=== PATIENT | female | born 1990 | race Caucasian/White ===

== ENCOUNTER → 2016-11-05 | Outpatient (CLI) | payer BC ==
[~2016-11-05] MED LIST: PRENTAB26 PO
[2016-11-05 14:06] LABS: GTGD 50 Grams
[2016-11-06 13:28] LABS: AFP CONCENTRATION 51.4 NG/ML; AFP MULTIPLE OF MEDIAN 1.44; AFPTS GESTATIONAL AGE 16.1 WEEKS; AFPTS INSULIN DEP DIABETIC? NO; AFPTS MATERNAL WT 134 LBS; ALPHA-FETOPROTEIN RACE CAUCASIAN=W; EDD DETERMINED BY ULTRASOUND; ESTRIOL MULTIPLE OF MEDIAN 1.14; HISTORY OF NTD NO; INHIBIN A 221 PG/ML; INHIBIN A MOM 1.22; REPEAT SAMPLE? NO; hCG MULTIPLE OF MEDIAN 2.74
== END | disposition home or self-care (01) ==
LOC: C.LAB1850 09:35
PROVIDERS: ATTEND Obstetrics & Gynecology
DX: O09.292 Supervision of pregnancy with other poor reproductive or obstetric history, second trimester (principal); Z3A.00 Weeks of gestation of pregnancy not specified

== ENCOUNTER → 2016-12-06 | Outpatient (CLI) | payer BC | END | disposition home or self-care (01) | LOC: C.LABSPEC 14:33 | PROVIDERS: ATTEND Obstetrics & Gynecology | DX: O09.293 Supervision of pregnancy with other poor reproductive or obstetric history, third trimester (principal) ==

== ENCOUNTER 2017-01-21 23:23 | Outpatient (CLI) | payer BC ==
[~2017-01-21] VITALS: Ht 154.9 cm; Wt 66.0 kg
[2017-01-22 00:37] VITALS: Ht 154.9 cm; Wt 66.0 kg
[2017-01-22] MEDS ORDERED: PRENTAB26 PO (00:38)
--- NOTE | 2017-02-04 10:12 | EDITING REQUIRED CODING QUERY ---
DIAGNOSIS NEEDED To promote full compliance with coding requirements relating to patient care, physician participation is requested in all cases of furniture arranger uncertainty. Please assist us with the question(s) below: Coding Question: The patient received care in labor and delivery on 01/21/17 as noted within the record. Please document the diagnosis that is being addressed by the medication/treatment. Provider Response: DIAGNOSIS: Abdominal pain in Thank you for your assistance, Isabel Resendiz - Terrazzo Roller
== END 2017-01-22 00:35 | disposition home or self-care (01) ==
LOC: C.LD 23:23 → C.OPB 23:23
PROVIDERS: ATTEND Obstetrics & Gynecology
DX: O99.89 Other specified diseases and conditions complicating pregnancy, childbirth and the puerperium (principal); R10.9 Unspecified abdominal pain; Z3A.27 27 weeks gestation of pregnancy

== ENCOUNTER 2017-01-22 00:40 | Emergency (ER) | payer BC ==
[~2017-01-22] VITALS: Ht 157.5 cm; Wt 67.2 kg
[2017-01-22 00:47] VITALS: TEMP 36.8; Ht 157.5 cm; Wt 67.2 kg
[2017-01-22] MEDS ORDERED: ACETAMINOPHEN 500 MG TAB PO STA (01:33)
[2017-01-22 01:49] LABS: MEAN CELL VOLUME 93.2 fL (80-100); MEAN CORPUSCULAR HEMOGLOBIN 32.6 pg (25-34); MEAN PLATELET VOLUME 10.5 fL (7.4-10.4); PLATELET COUNT 222 K/uL (130-400); RED BLOOD COUNT 3.65 M/uL (4.2-5.4); WHITE BLOOD COUNT 10.43 K/uL (4.8-10.8)
[2017-01-22 01:52] LABS: URINE APPEARANCE CLEAR (CLEAR); URINE BILIRUBIN NEG (NEG); URINE COLOR YELLOW; URINE EPITHELIAL CELL AUTO 20-30 /lpf (0-5); URINE NITRITE NEG (NEG); URINE PH 7.5 (4.5-7.5); URINE SPECIFIC GRAVITY 1.005 (1.000-1.030); UROBILINOGEN NEG (NEG); ZZUR CULT IF INDIC CLEAN CATCH NO
[2017-01-22 01:55] LABS: MANUAL MICROSCOPIC REQUIRED? NO; REVIEW REQ? NO
[2017-01-22 01:56] LABS: ALT/SGPT 14 U/L (12-78); AST/SGOT 8 U/L (15-37); BLOOD UREA NITROGEN 7 mg/dl (7-18); BUN/CREATININE RATIO 14.3 (10-20); CALCIUM 8.5 mg/dl (8.5-10.1); CARBON DIOXIDE 26 mmol/L (21-32); CHLORIDE 107 mmol/L (98-107); CREATININE 0.52 mg/dl (0.60-1.20); GLUCOSE 90 mg/dl (70-99); POTASSIUM 3.7 mmol/L (3.5-5.1); SODIUM 141 mmol/L (136-145)
[2017-01-22 01:59] LABS: ALB/GLOB RATIO 0.7 (0.9-2); ALKALINE PHOSPHATASE 100 U/L (45-117)
[2017-01-22 02:08] LABS: BASO % 0.1 %; BASO ABS # 0.01 K/uL (0-0.2); COMPLETE YES; EOS % 1.1 %; IG% 0.4 %; LYMPH % 20.6 %; LYMPH ABS # 2.15 K/uL (1.2-3.4); MONO % 5.8 %
[2017-01-22 03:29] VITALS: BP 95/55; PULSE 87; O2SAT 97
--- NOTE | 2017-01-22 06:30 | EMERGENCY ROOM VISIT NOTE ---
History First contact with patient: 01:26 Chief Complaint: ABDOMINAL PAIN Stated Complaint: LOWER LT ABD PAIN AND TENDERNESS Nursing Triage Summary: pt c/o left sided abd pain and tenderness. some nausea. denies v/d. 27 wks preg. denies any spotting or bleeding. evaled on OB, no problems History of Present Illness The patient is a 26 year old female who presents to the Emergency Room with complaints of left sided lower abdominal pain for the past one and half days. The patient is 27 weeks with her second child. She has already been seen on the OB floor where a nonstress test was normal. The patient was then referred down to the ER for further evaluation. The patient has not had fever, chills, chest pain, chest tightness, or shortness of breath. No vaginal drainage, discharge, or bleeding. No dysuria or flank pain. The baby has been moving is normal. The patient states her discomfort does worsen with certain positions and range of motion. Standing upright does exacerbate her discomfort. The patient has not been taking anything [id number] for her discomfort which she currently rates a 5/10. Review of Systems More than 10 systems were reviewed and otherwise negative with the exception of history of present illness. Past Medical/Surgical History No chronic medical disease Family History No pertinent family history Social History Smoking Status: Never Smoker Housing Status: lives with family Current/Historical Medications Scheduled Multivit/Min/Iron/Fol Ac/Pren ( Vitamin), 1 TAB PO DAILY Allergies Uncoded Allergies: GREEN TABASCO SAUCE (Allergy, Intermediate, HIVES, 07/09/15) Physical Exam Vital Signs Date Time Temp Pulse Resp B/P Pulse Ox O2 Delivery O2 Flow Rate FiO2 01/22/17 03:29 87 20 95/55 97 01/22/17 02:38 75 18 100/57 97 Room Air 01/22/17 00:47 36.8 85 20 116/74 97 Room Air Pain Rating (0-10): 3.0 Physical Exam VITALS: Vitals are noted on the nurse's note and reviewed by myself. Vital signs stable. GENERAL: Well-developed, well-nourished, white female, who is in no acute distress and resting comfortably. Patient is cooperative with the examination. HEAD: Normocephalic atraumatic. HEART: Regular rate and rhythm without murmurs gallops or rubs. LUNGS: Clear to auscultation bilaterally without wheezes, rales or rhonchi. No retractions or accessory muscle use. ABDOMEN: Positive normal bowel sounds x 4. Soft without significant tenderness on palpation. Abdomen is consistent with 27 week . No CVA tenderness. MUSCULOSKELETAL: No muscle atrophy, erythema, or edema noted. Full range of motion without joint tenderness in all extremities. Medical Decision & Procedures Laboratory Results 01/22/17 01:20 Red Blood Count 3.65, Mean Corpuscular Volume 93.2, Mean Corpuscular Hemoglobin 32.6, Mean Corpuscular Hemoglobin Concent 35.0, Mean Platelet Volume 10.5, Neutrophils (%) (Auto) 72.0, Lymphocytes (%) (Auto) 20.6, Monocytes (%) (Auto) 5.8, Eosinophils (%) (Auto) 1.1, Basophils (%) (Auto) 0.1, Neutrophils # (Auto) 7.52, Lymphocytes # (Auto) 2.15, Monocytes # (Auto) 0.60, Eosinophils # (Auto) 0.11, Basophils # (Auto) 0.01 01/22/17 01:20 Test 01/22/17 01:20 White Blood Count 10.43 K/uL (4.8-10.8) Red Blood Count 3.65 M/uL (4.2-5.4) Hemoglobin 11.9 g/dL (12.0-16.0) Hematocrit 34.0 % (37-47) Mean Corpuscular Volume 93.2 fL (80-100) Mean Corpuscular Hemoglobin 32.6 pg (25-34) Mean Corpuscular Hemoglobin Concent 35.0 g/dl (32-36) Platelet Count 222 K/uL (130-400) Mean Platelet Volume 10.5 fL (7.4-10.4) Neutrophils (%) (Auto) 72.0 % Lymphocytes (%) (Auto) 20.6 % Monocytes (%) (Auto) 5.8 % Eosinophils (%) (Auto) 1.1 % Basophils (%) (Auto) 0.1 % Neutrophils # (Auto) 7.52 K/uL (1.4-6.5) Lymphocytes # (Auto) 2.15 K/uL (1.2-3.4) Monocytes # (Auto) 0.60 K/uL (0.11-0.59) Eosinophils # (Auto) 0.11 K/uL (0-0.5) Basophils # (Auto) 0.01 K/uL (0-0.2) RDW Standard Deviation 46.8 fL (36.4-46.3) RDW Coefficient of Variation 13.7 % (11.5-14.5) Immature Granulocyte % (Auto) 0.4 % Immature Granulocyte # (Auto) 0.04 K/uL (0.00-0.02) Urine Color YELLOW Urine Appearance CLEAR (CLEAR) Urine pH 7.5 (4.5-7.5) Urine Specific [place] 1.005 (1.000-1.030) Urine Protein NEG (NEG) Urine Glucose (UA) NEG (NEG) Urine Ketones NEG (NEG) Urine Occult Blood NEG (NEG) Urine Nitrite NEG (NEG) Urine Bilirubin NEG (NEG) Urine Urobilinogen NEG (NEG) Urine Leukocyte Esterase TRACE (NEG) Urine WBC (Auto) 1-5 /hpf (0-5) Urine RBC (Auto) 0-4 /hpf (0-4) Urine Hyaline Casts (Auto) 1-5 /lpf (0-5) Urine Epithelial Cells (Auto) 20-30 /lpf (0-5) Urine Bacteria (Auto) NEG (NEG) Anion Gap 8.0 mmol/L (3-11) Est Creatinine Clear Calc Drug Dose 148.7 ml/min Estimated GFR () > 150.0 Estimated GFR (Non- 132.8 BUN/Creatinine Ratio 14.3 (10-20) Calcium Level 8.5 mg/dl (8.5-10.1) Total Bilirubin 0.2 mg/dl (0.2-1) Aspartate Amino Transf (AST/SGOT) 8 U/L (15-37) Alanine Aminotransferase (ALT/SGPT) 14 U/L (12-78) Alkaline Phosphatase 100 U/L (45-117) Total Protein 7.1 gm/dl (6.4-8.2) Albumin 3.0 gm/dl (3.4-5.0) Globulin 4.1 gm/dl (2.5-4.0) Albumin/Globulin Ratio 0.7 (0.9-2) Lipase 173 U/L (73-393) Medications Administered Medications (Trade) Dose Ordered Sig/Narendra Route Start Time Stop Time Status Last Admin Dose Admin Acetaminophen (Tylenol Tab) 1,000 mg NOW STAT PO 01/22/17 01:33 01/22/17 01:36 DC 01/22/17 01:47 1,000 MG ED Course Physical exam and history were performed. Nursing notes and EMR were reviewed. Patient appears to have left-sided lower abdominal pain. She does not have significant tenderness on palpation. The patient was reevaluated by OB, and was sent to the ER for evaluation. IV access was established and labs were obtained. The patient was given oral Tylenol for comfort. The patient's blood work is as above and was reviewed. She does not have a significantly elevated white blood cell count or gross anemia. Lipase and transaminases are nondiagnostic. Urine is without evidence of infection. Overall the patient appears well on exam. I discussed options of care with patient, and she seems stable for discharge home. The patient should follow-up with her [facility] or PCP for ongoing care and evaluation. Clinically I suspect her symptoms are most likely muscular skeletal or related to round ligament pain. The patient was pleased with this plan and rated her discomfort a 5/10 at the time of departure. The chart was completed utilizing [employer] Speech Voice Recognition Software. Grammatical errors, random word insertions, pronoun errors, and incomplete sentences are an occasional consequence of this system due to software limitations, ambient noise, and hardware issues. Any formal questions or concerns about the content, text, or information contained within the body of this dictation should be directly addressed to the provider for clarification. . Medical Decision Differential diagnosis: Etiologies such as appendicitis, diverticulitis, PUD, biliary pathology, UTI, pancreatitis, obstruction, mesenteric ischemia, aortic pathology, infections, inflammatory bowel disease, renal colic, as well as others were entertained. Impression Primary Impression: Left sided abdominal pain Additional Impression: Departure Information Dispostion Home / Self-Care Condition GOOD Forms HOME CARE DOCUMENTATION FORM, IMPORTANT VISIT INFORMATION Patient Instructions My [facility] Additional Instructions You were seen and evaluated today on an emergency basis only. This is not a substitute for, or an effort to provide, complete comprehensive medical care. It is not possible to recognize and treat all injuries or illnesses in a single emergency department visit. For this reason it is recommended that you followup with [facility] as scheduled this week for ongoing care and evaluation. Take Tylenol 1000 mg every 8 hours as needed for pain control. You are welcome to return to the emergency department anytime with new, worsening, or concerning symptoms. Problem Qualifiers
== END 2017-01-22 03:31 | disposition home or self-care (01) ==
LOC: C.EDB 00:44
DX: R10.32 Left lower quadrant pain (principal); O26.892 Other specified pregnancy related conditions, second trimester; Z3A.27 27 weeks gestation of pregnancy; Z79.899 Other long term (current) drug therapy

== ENCOUNTER → 2017-01-28 | Outpatient (CLI) | payer BC ==
[2017-01-28 12:06] LABS: HEMATOCRIT 32.1 % (37-47)
[2017-01-28 13:10] LABS: GTGD 50 Grams
== END | disposition home or self-care (01) ==
LOC: C.LAB1850 09:17
PROVIDERS: ATTEND Obstetrics & Gynecology
DX: O09.293 Supervision of pregnancy with other poor reproductive or obstetric history, third trimester (principal)

== ENCOUNTER → 2017-01-28 | Outpatient (CLI) | payer BC ==
[2017-01-28 14:57] LABS: URINE APPEARANCE CLEAR (CLEAR); URINE BILIRUBIN NEG (NEG); URINE COLOR YELLOW; URINE EPITHELIAL CELL AUTO >30 /lpf (0-5); URINE NITRITE NEG (NEG); URINE SPECIFIC GRAVITY 1.013 (1.000-1.030); UROBILINOGEN POS (NEG)
[2017-01-28 15:07] LABS: MANUAL MICROSCOPIC REQUIRED? NO; REVIEW REQ? NO
== END | disposition home or self-care (01) ==
LOC: C.LABSPEC 14:03
PROVIDERS: ATTEND Obstetrics & Gynecology
DX: O09.293 Supervision of pregnancy with other poor reproductive or obstetric history, third trimester (principal)

== ENCOUNTER 2017-04-22 01:58 | Inpatient (IN) | payer BC ==
[~2017-04-22] VITALS: Ht 157.5 cm; Wt 72.0 kg
[2017-04-22 02:49] VITALS: BMI 29.0
[2017-04-22] MEDS ORDERED: LACTATED RINGER'S 1000ML 1,000 ML IV PRN (06:42)
[2017-04-22] MEDS ORDERED: PENICILLIN G POTASSIUM IV 6 MU in DEXTROSE 5% 250ML 250 ML IV STA (06:46)
[2017-04-22 07:05] VITALS: Ht 157.5 cm; Wt 72.0 kg
[2017-04-22 07:08] LABS: HEMATOCRIT 34.4 % (37-47); MEAN CELL VOLUME 89.6 fL (80-100); MEAN CORPUSCULAR HEMOGLOBIN 29.2 pg (25-34); MEAN CORPUSCULAR HGB CONC 32.6 g/dl (32-36); MEAN PLATELET VOLUME 11.6 fL (7.4-10.4); PLATELET COUNT 176 K/uL (130-400); RED BLOOD COUNT 3.84 M/uL (4.2-5.4); WHITE BLOOD COUNT 8.81 K/uL (4.8-10.8)
[2017-04-22] MEDS: LACTATED RINGER'S 1000ML 1,000 ML IV SCH ×2 (07:14→18:16)
[2017-04-22] MEDS ORDERED: LACTATED RINGER'S 1000ML 500 ML IV PRN ×2 (09:13→13:36)
[2017-04-22] MEDS ORDERED: OXYTOCIN 30 UNITS/500ML NSS IV PRN ×2 (09:15→22:00)
[2017-04-22] MEDS: PENICILLIN G POTASSIUM IV 3 MU in DEXTROSE 5% 100ML 100 ML IV PRN ×3 (11:12→19:02)
[2017-04-22] MEDS ORDERED: BUPIVACAINE 0.25% 30 ML VIAL ONE (11:54)
[2017-04-22] MEDS ORDERED: FENTANYL 2MCG/ML ROPIV 1.25MG/ML 100ML BAG EPI ONE (11:54)
[2017-04-22] MEDS ORDERED: EpHEDrine SULFATE INJ 50 MG/ML AMP ONE (11:54)
[2017-04-22] MEDS ORDERED: FENTANYL CITRATE INJ 50 MCG/1 ML 2 ML VIAL ONE (11:55)
[2017-04-22] MEDS ORDERED: NALOXONE HCL INJ 1 MG in SODIUM CHLORIDE 0.9% 1000ML 1,000 ML IV PRN (13:36)
[2017-04-22] MEDS ORDERED: NALBUPHINE HCL INJ 10 MG/ML AMP IV PRN (13:45)
[2017-04-22] MEDS ORDERED: DiphenhydrAMINE HCL 50 MG/ML VIAL IV PRN (13:45)
[2017-04-22] MEDS ORDERED: NALOXONE HCL INJ 0.4 MG/1 ML VIAL/CARP IV PRN (13:45)
[2017-04-22] MEDS ORDERED: ONDANSETRON INJ 2 MG/ML 2 ML VIAL IV PRN (13:45)
[2017-04-22] MEDS ORDERED: EpHEDrine SULFATE INJ 50 MG/ML AMP IV PRN (13:45)
[2017-04-22] MEDS: FENTANYL 2MCG/ML ROPIV 1.25MG/ML 100ML BAG EPI PRN ×4 (15:13→19:52)
[2017-04-22] MEDS ORDERED: ACETAMINOPHEN 325 MG TAB PO PRN (22:00)
[2017-04-22] MEDS ORDERED: SUPERCREAM 0.870 % 15GM JAR EXT PRN (22:00)
[2017-04-22] MEDS ORDERED: LANOLIN OINT EXT PRN ×2 (22:00)
[2017-04-22] MEDS ORDERED: ACETAMINOPHEN/CODEINE 300/30MG TAB PO PRN ×2 (22:00)
[2017-04-22] MEDS ORDERED: BENZOCAINE 20% AER SPR 82.5 GM CAN EXT PRN (22:00)
--- NOTE | 2017-04-22 22:05 | Medical Student: [facility] ---
Medical Student Delivery Note Candis Easley is a 26-year-old G2 now P2002 with an AURE of 04/21/17 who presented with contractions. Labor was augmented with pitocin, and she received GBS prophylaxis. Since arrival, she received epidural anesthesia and became completely dilated and effaced. When she was 0 station, she was ready to push. A viable male was delivered over an intact perineum at 2134 in the direct occiput anterior position. Nose and mouth were bulb suctioned at the perineum, and a nuchal cord was reduced. The rest of the infant was delivered without difficulty and was placed on the maternal abdomen for drying and attention. The cord was doubly clamped and transected by the father. The infant was then taken by the awaiting nurse for further stimulation. AGPAR scores were 6 and 8. An intact placenta with a 3 vessel cord was delivered with uterine massage and jonatan downward traction. A first degree laceration of the perineum was apparant and was repaired with 3-0 Chromic. Hemostatsis was achieved with continued uterine massage. EBL was 250. Weight pending. Mother and are currently recovering together in stable condition.
--- NOTE | 2017-04-22 22:57 | DELIVERY SUMMARY ---
DATE OF OPERATION: 04/22/2017 Patient is a 26-year-old G2, P1-0-0-1, white female, EDC of 04/21/2017, who had presented with regular contractions early in the morning of 04/22/2017. She was noted to have cervical change from 4 cm to 5 cm, although the contractions were not very regular. She as GBS positive and she received adequate treatment for GBS prophylaxis. Her prior had been complicated by a 4 th degree laceration. Patient is willing to try a trial of labor. She accepted epidural analgesia to help to have a more controlled pushing stage. Membranes were ruptured for clear fluid. She progressed to full dilation with Pitocin augmentation. She pushed effectively over an intact perineum. There was a loose nuchal cord that was reduced after delivery of the head. The rest of the delivered without difficulty. Mouth and nasopharynx were suctioned on the perineum prior to delivering the rest of the infant. Infant was placed on the mother's abdomen for further attention and stimulation. Cord was clamped and cut. The infant was then taken to the baby bed for more stimulation, as there was poor respiratory effort. Once the baby had blow-by oxygen and delee suction, there was spontaneous cry, was moving all four limbs. The placenta was expressed intact with a 3-vessel cord. A first-degree perineal laceration was repaired with 3-0 chromic in the usual fashion. Estimated blood loss was 250 mL. Mother and infant were doing well after delivery. I attest to the content of the Intraoperative Record and any orders documented therein. Any exceptions are noted below. MTDD
[2017-04-22] MEDS: IBUPROFEN 600 MG TAB PO PRN (23:33)
[2017-04-23 00:40] VITALS: BP 114/68; PULSE 94; TEMP 36.8; O2SAT 94
[2017-04-23 03:20] VITALS: BP 109/68; PULSE 90; TEMP 36.6; O2SAT 95
[2017-04-23 06:49] LABS: HEMATOCRIT 30.1 % (37-47)
--- NOTE | 2017-04-23 07:00 | Anesthesia Procedure Note ---
Anesthesia Epidural Removal Nt Date & Time Apr 23, 2017 at 06:59 Vital Signs Pain Intensity: 3.0 Vital Signs Past 12 Hours Date Time Temp Pulse Resp B/P (MAP) Pulse Ox O2 Delivery O2 Flow Rate FiO2 04/23/17 03:20 36.6 90 20 109/68 (82) 95 Room Air 04/23/17 00:40 36.8 94 18 114/68 (83) 94 Room Air 04/23/17 00:40 Room Air Notes Mental Status: alert / awake / arousable, participated in evaluation Nausea / Vomiting: adequately controlled Pain: adequately controlled Airway Patency, RR, SpO2: stable & adequate BP & HR: stable & adequate Hydration State: stable & adequate Neuraxial Anesthesia: was administered Anesthetic Complications: no major complications apparent, pt satisfied with anesthetic care Epidural: removed without complications, with tip intact
--- NOTE | 2017-04-23 07:41 | Progress Note ---
Subjective Apr 23, 2017. Subjective conversation w/ patient, physical exam Ambulation: ambulating normally Voiding: no voiding problems Passing Gas: Yes Diet Tolerance: Regular Diet Lochia: Moderate Feeding Type: Breast Feeding Review of Systems Constitutional: No fever, No chills, No sweats, No weight loss, No weakness, No fatigue, No problem reported Abdomen: No pain, No nausea, No vomiting, No diarrhea, No constipation, No GI bleeding, No problem reported Female : No see HPI, No dysuria, No urinary frequency, No hematuria, No incontinence, No abnormal vaginal bleeding, No vaginal discharge, No problem reported Objective Vital Signs Date Time Temp Pulse Resp B/P (MAP) Pulse Ox O2 Delivery O2 Flow Rate FiO2 04/23/17 03:20 36.6 90 20 109/68 (82) 95 Room Air 04/23/17 00:40 36.8 94 18 114/68 (83) 94 Room Air 04/23/17 00:40 Room Air Physical Exam General Appearance: WELL-APPEARING, NO APPARENT DISTRESS Abdomen: non tender, soft Fundus: Firm, Non-Tender, Relation to Umbilicus (4below U) Extremities: no calf tenderness Laboratory Results Last 24 Hours Test 04/23/17 06:29 Hemoglobin 10.1 g/dL Hematocrit 30.1 % Assessment and Plan Problem List Medical Problems: (1) Left sided abdominal pain Status: Acute (2) Status: Acute Day#: 1 Continue Routine Care: stable course. GBS(+) continue current care plan
[2017-04-23 07:43] VITALS: BP 106/71; TEMP 36.6; O2SAT 95
[2017-04-23] MEDS: IBUPROFEN 600 MG TAB PO PRN ×2 (08:27→12:41)
[2017-04-23] MEDS: DOCUSATE SODIUM 100 MG CAP PO SCH ×2 (08:27→20:08)
[2017-04-23 12:40] VITALS: BP 111/73; TEMP 36.7; O2SAT 96
[2017-04-23 14:51] VITALS: BP 104/68; PULSE 76; TEMP 36.6; O2SAT 95
[2017-04-23 20:00] VITALS: BP 110/73; PULSE 92; TEMP 36.8
[2017-04-23] MEDS ORDERED: BISACODYL 5 MG TABEC PO SCH (20:00)
[2017-04-24 00:40] VITALS: BP 114/79; PULSE 74; TEMP 36.8
[2017-04-24 07:30] VITALS: BP 115/78; PULSE 76; TEMP 36.7; O2SAT 96
[2017-04-24] MEDS: DOCUSATE SODIUM 100 MG CAP PO SCH ×2 (07:39→19:19)
--- NOTE | 2017-04-24 08:05 | Progress Note ---
Subjective Apr 24, 2017. Subjective conversation w/ patient, physical exam, chart review Ambulation: ambulating normally Voiding: no voiding problems Passing Gas: Yes Diet Tolerance: Regular Diet Lochia: Moderate Feeding Type: Breast Feeding Review of Systems Constitutional: No fever, No chills Respiratory: No cough Cardiac: No chest pain Abdomen: No nausea, No vomiting Objective Vital Signs Date Time Temp Pulse Resp B/P (MAP) Pulse Ox O2 Delivery O2 Flow Rate FiO2 04/24/17 00:40 Room Air 04/24/17 00:40 36.8 74 18 114/79 (91) Room Air 04/23/17 20:00 36.8 92 20 110/73 (85) Room Air 04/23/17 16:45 Room Air 04/23/17 14:51 36.6 76 16 104/68 (80) 95 Room Air 04/23/17 12:40 36.7 16 111/73 (86) 96 Room Air Physical Exam General Appearance: WELL-APPEARING, NO APPARENT DISTRESS Respiratory/Chest: no respiratory distress, no accessory muscle use Cardiovascular: no edema Abdomen: non tender, soft Fundus: Firm Extremities: no calf tenderness Assessment and Plan Problem List Medical Problems: (1) Left sided abdominal pain Status: Acute (2) Status: Acute Day#: 2 Continue Routine Care: d/c home today, instructions reviewed
--- NOTE | 2017-04-24 08:06 | Discharge Instructions ---
Discharge Instructions Date of Service Apr 24, 2017. Admission Reason for Admission: LABOR Discharge Discharge Diagnosis / Problem: vaginal delivery Discharge Goals Goal(s): Routine recovery after delivery Activity Recommendations Activity Limitations: per Instructions/Follow-up section . Instructions / Follow-Up Instructions / Follow-Up ACTIVITY RECOMMENDATIONS: * Gradual return to full activity over the next 2-3 weeks. * No lifting - nothing heavier than baby over the next 2-3 weeks. * Do not engage in vigorous exercise, sexual activity or sports until cleared by your physician. * Do not drive or operate any motorized equipment until cleared by your physician. * You may shower/bathe daily. MEDICATIONS: For discomfort or pain, you may use Acetaminophen (Tylenol), Ibuprofen (Advil), or Naproxen (Aleve) following the package directions. For constipation you may use Colace following the package directions. BREAST CARE: If you are not breast feeding: * Wear a supportive bra 24 hours a day for one to two weeks. * Avoid stimulating your breasts and nipples as much as possible during the first few weeks after delivery. * When taking a shower, have the warm water hit your back, not breasts. * When your breasts feel full, apply ice packs. Usually three to four times a day helps ease the discomfort. * Take a mild pain medication (Tylenol / Motrin) when you are uncomfortable. If breast feeding: * Use breast milk to lubricate nipples. Lansinoh cream may be used for sore nipples. You do not need to remove cream prior to breast feeding. If using a different brand of cream, check the label for directions regarding removal of cream prior to nursing. * Wear a supportive bra. * If having problems with breasts or breast feeding, call a organizational research consultant or your health care provider. EPISIOTOMY CARE: After delivery, if you have an episiotomy (stitches), the following steps will ease discomfort and aid healing. * For the first 24 hours after delivery, place ice packs next to your episiotomy to help reduce swelling. * After the first 24 hour-period, sitz baths, either portable or in the tub, are suggested. A shower with a shower arm sprayed over the episiotomy may be comforting. * Tete care should be done after each voiding and bowel movement. Squirt warm water from a plastic bottle over the perineum (region of the body between the anus and urinary opening) and pat dry. * Use Dermoplast to ease discomfort. Shake container. [place] directly over the episiotomy. Place a Tucks on a clean sanitary pad next to your episiotomy. SPECIAL CARE INSTRUCTIONS: When you are discharged from the hospital, it is important for you to follow the instructions listed below: * During the first week at home, you should be able to care for yourself and your baby. In addition, the usual light household activities are encouraged. * Limit your activities to the way you feel. Do not try to clean the house or move furniture. Be sensible. * If you actively engage in sports and have done so up until the time of your delivery, you may resume these activities as soon as you feel able. This may take up to one month or even longer. Use good judgment. * Continue to take your vitamins for at least six weeks after the of your baby. * Your diet need not be limited unless you were on a special diet before your delivery. Breast-feeding mothers need around 2500 calories per day and at least 64-80 ounces of fluid per day (8 to 10 glasses). * You should eat foods from the four major food groups. Crash diets or fad diets are to be avoided. Eating lean meats, fresh fruits and vegetables, low-fat dairy products, high fiber foods and a regular exercise program, will help you get back to your pre- weight without putting your health at risk. * Constipation is sometimes a problem after delivery. Take a mild laxative as needed. If breast feeding, Milk of Magnesia is acceptable to use. You may use a suppository or Fleets enema if no episiotomy. * A daily shower or tub bath is suggested. Be sure to thoroughly and gently dry the perineum. * A bloody vaginal discharge will usually continue until around four weeks post . A small amount of bleeding may continue for as long as six weeks. Vaginal discharge changes from the bright red bleeding after delivery to pink then brownish and finally yellowish-pink before becoming white and disappearing. * Bleeding may increase with activity. Your first period may come in 4-8 weeks. If you are breast feeding, your period may be delayed even longer. * Accident (sex) can begin whenever both you and your partner feel comfortable and do not have any form of genital infection. It is recommended that you wait at least six weeks for internal and external healing to occur. If you have questions, please talk to your health care practitioner. A condom should be used to prevent infection and . * Foreplay, gentle intercourse and lubrication is very important the first several times to prevent pain. A water-based lubricant such as K-Y jelly or Astroglide may be used. * If you have RH negative blood and your baby is RH positive, you will receive RHOGAM by injection prior to discharge. The nurse will give you a card to keep with you that has the date and place that you received RHOGAM after delivery. * During your care, you had a Rubella screen done to check for the presence of rubella antibodies in your blood. If your test was negative, you will receive a Rubella vaccine prior to discharge. This vaccine may cause a fever, soreness at the injection site and flu-like symptoms. If these symptoms persist, notify your health care practitioner. is not advised for one month after a Rubella vaccine. * Verbalizes understanding of car seat law as reviewed with patient nursing. * Car Seat hand-out given and reviewed with patient by nursing. * Shaken baby information reviewed with patient by nursing. Call you doctor if: * Heavy bleeding (saturating several pads an hour) or passing clots the size of your fist. * A fever >101 degrees F (38.3 degrees C) on two occasions four hours apart and /or chills. * Unusual pain in the pelvic or vaginal areas. * "Baby Blues" lasting longer than two weeks. If you have any questions or concerns, call your health care practitioner at . FOLLOW UP VISIT: * Please call the office at to schedule a 6 week examination. It is important you keep this appointment. It is important for you to make arrangements for either yearly or twice yearly check-ups thereafter. Current Hospital Diet Patient's current hospital diet: Regular OB Diet Discharge Diet Recommended Diet: Regular Diet Pending Studies Studies pending at discharge: no Medical Emergencies . Who to Call and When: Medical Emergencies: If at any time you feel your situation is an emergency, please call 911 immediately. . Non-Emergent Contact Non-Emergency issues call your: Primary Care Provider . . "Provider Documentation" section prepared by Tona Frederick. . VTE Core Measure Inpt VTE Proph given/why not?: Treatment not indicated
[2017-04-24] MEDS ORDERED: MEASLES, MUMPS & RUBELLA VIRUS VIAL SQ. ONE (11:30)
[2017-04-24 15:45] VITALS: BP 107/69; PULSE 88; TEMP 36.8
[2017-04-24 19:20] VITALS: BP 117/82; PULSE 82; TEMP 36.8; O2SAT 96
== END 2017-04-24 20:40 | disposition home or self-care (01) | DRG 775 ==
LOC: C.OPB 01:58 → C.LD 01:58 → C.OPB 06:56 → C.OBG 04-23 00:48
PROVIDERS: ADMIT Obstetrics & Gynecology; ATTEND Obstetrics & Gynecology
PROC: 0HQ9XZZ Repair Perineum Skin, External Approach (ICD-10-PCS; principal; 2017-04-22)
PROC: 10E0XZZ Delivery of Products of Conception, External Approach (ICD-10-PCS; principal; 2017-04-22)
DX: O48.0 Post-term pregnancy (principal); O99.824 Streptococcus B carrier state complicating childbirth; O70.0 First degree perineal laceration during delivery; Z23 Encounter for immunization; Z37.0 Single live birth; Z3A.40 40 weeks gestation of pregnancy; O69.81X0 Labor and delivery complicated by cord around neck, without compression, not applicable or unspecified; O35.1XX0 Maternal care for (suspected) chromosomal abnormality in fetus, not applicable or unspecified